=== PATIENT | female | born 1965 | race Caucasian/White ===

== ENCOUNTER 2016-11-02 07:02 | Day surgery (SDC) | payer OTHER ==
[~2016-11-02] VITALS: Ht 162.6 cm; Wt 74.7 kg
[2016-11-02 07:27] VITALS: Ht 162.6 cm; Wt 74.7 kg
[2016-11-02 07:54] VITALS: BP 126/61; PULSE 66; RESP 18
[2016-11-02] MEDS ORDERED: MIDAZOLAM 1 MG/ML 2 ML INJ ONE ×2 (08:31)
[2016-11-02] MEDS ORDERED: FENTAnyl 50 MCG/ML VIAL ONE (08:31)
[2016-11-02 08:54] VITALS: BP 90/63; RESP 20
--- NOTE | 2016-11-02 22:47 | GILP ---
DATE OF PROCEDURE: PROCEDURE: Colonoscopy. PREOPERATIVE DIAGNOSIS: The patient presenting with history of no significant GI problems. This is a screening colonoscopy to rule out colon polyps. POSTOPERATIVE DIAGNOSIS: Normal examination. DESCRIPTION OF PROCEDURE: After informed written consent was obtained, the patient was asked to lie on the left lateral side. The patient was given 4 mg Versed and 75 mcg of fentanyl as intravenous anesthesia. When the patient became somnolent, the Olympus video colonoscope was introduced into the rectum and scope was advanced all the way to the cecum. Entire colon appeared perfectly normal with no mucosal abnormality. Endoscope at this time was withdrawn. On the way out, further evaluation was carried out. No additional abnormalities detected and the procedure was terminated. PLAN: Recommend repeat colonoscopy in 10 years. Dictated By: ABBEY ROB/NTS Conf#: [id number] DID#: [id number] CC: ABBEY ZAMBRANO MD; Kaycee Turpin;*End*
== END 2016-11-02 10:13 | disposition home or self-care (01) ==
LOC: GIL 07:02
PROVIDERS: ATTEND Internal Medicine Gastroenterology
DX: Z12.11 Encounter for screening for malignant neoplasm of colon (principal)
CPT/HCPCS: 45378; J2250; J3010; Z7610